=== PATIENT | male | born 2000 | race Caucasian/White ===

== ENCOUNTER 2024-01-26 09:25 | Emergency (ER) | payer SELFPAY ==
[2024-01-26 09:33] VITALS: BP 106/72; PULSE 103; TEMP 37; O2SAT 98; BMI 24.4
--- NOTE | 2024-01-26 09:45 | XR_ITS ---
The [address] [address] Patient Name: VIANEY EARLY MRN: [id number] date: 2000 Sex: M Assigned Patient Location: ER Current Patient Location: ER Accession/Order Number: [id number] Exam Date: 01/26/2024 09:50 Report Date: 01/26/2024 10:09 At the request of: DAYA GLOVER Procedure: XR chest 1V EXAMINATION: XR chest 1V HISTORY: Cough for 3 weeks COMPARISON: No relevant comparison available. FINDINGS: LUNGS: Mild faint patchy opacities within right lung base. VASCULATURE: No increased pulmonary vasculature. PLEURA: No pneumothorax, effusion, or pleural thickening. CARDIAC: No cardiomegaly or cardiac silhouette abnormality. MEDIASTINUM: No visible mass or adenopathy. BONES: No fracture or visible bone lesion. OTHER: Negative. XR/XR chest 1V IMPRESSION: 1. Mild right basilar infiltrates suggestive of pneumonia. Electronically authenticated by: OLIVA PHELPS Date: 01/26/2024 10:09
--- NOTE | 2024-01-26 09:47 | ED_ITS ---
HPI - URI/Sore Throat General Chief Complaint: Upper Respiratory Infection Stated Complaint: COUGH, CHEST PAIN Time Seen by Provider: 01/26/24 09:35 Source: patient History of Present Illness HPI Narrative: 23-year-old male presents to the emergency department for a cough. He has had it for 3 weeks and he will occasionally cough up a small amount of yellow phlegm. He had a fever 1 time more than a week ago. He is not a smoker and does not have asthma. Related Data Previous Rx's ?Medication ?Instructions ?Recorded azithromycin 250 mg tablet See Rx Instructions PO .COMPLEX #6 01/26/24 (Zithromax Z-Jona) tabs benzonatate 100 mg capsule 100 mg PO TID PRN cough #20 caps 01/26/24 Allergies Allergy/AdvReac Type Severity Reaction Status Date / Time No Known Drug Allergies Allergy Verified 01/26/24 09:33 Review of Systems ROS Narrative A ten point review of systems is negative except as noted above. PFSH PFSH Social History Little interest or pleasure in doing things: not at all Feeling down, depressed, or hopeless: not at all Exam Narrative Exam Narrative: Nurses note and vital signs reviewed and patient is not hypoxic. General: The patient appears well and in no apparent distress. Patient is resting comfortably on cart. Skin: Warm, dry, no pallor noted. There is no rash noted. Head: Normocephalic, atraumatic Eye: Normal conjunctiva, no drainage Ears, Nose, Mouth, and Throat: oral mucosa is moist. Nares patent. Cardiovascular: Regular Rate and Rhythm Respiratory: Patient is in no distress, no accessory muscle use, lungs are clear to auscultation, no wheezing, rales or rhonchi Back: non-tender GI: Soft and nontender Musculoskeletal: The patient has no evidence of calf tenderness, no pitting edema, symmetrical pulses noted bilaterally Neurological: A&O, normal speech Psychiatric: Cooperative Constitutional Vital Signs, click to edit/add: Last Vital Signs Temp 98.6 F 01/26/24 09:33 Pulse 103 H 01/26/24 09:33 Resp 16 01/26/24 09:33 BP 106/72 01/26/24 09:33 Pulse Ox 98 01/26/24 09:33 O2 Del Method Room Air 01/26/24 09:33 Course Vital Signs Vital signs: Vital Signs Temperature 98.6 F 11/27/24 09:33 Pulse Rate 103 H 01/26/24 09:33 Respiratory Rate 16 01/26/24 09:33 Blood Pressure 106/72 01/26/24 09:33 Pulse Oximetry 98 01/26/24 09:33 Oxygen Delivery Method Room Air 01/26/24 09:33 Temperature 98.6 F 01/26/24 09:33 Pulse Rate 103 H 01/26/24 09:33 Respiratory Rate 16 01/26/24 09:33 Blood Pressure 106/72 01/26/24 09:33 Pulse Oximetry 98 01/26/24 09:33 Oxygen Delivery Method Room Air 01/26/24 09:33 MDM - URI/Sore Throat MDM Narrative Medical decision making narrative: Chest x-ray indicates right lower lobe pneumonia. He did not want to have the COVID and influenza test performed. He is prescribed Zithromax and Tessalon. Treatment diagnosis and follow-up were discussed with the patient. Differential Diagnosis Differential diagnosis: Likely upper respiratory infection, influenza and other (COVID, pneumonia) Imaging Data Chest x-ray: Radiologist's impression: ITS Impressions Chest X-Ray 01/26/24 09:45 IMPRESSION: 1. Mild right basilar infiltrates suggestive of pneumonia. Electronically authenticated by: OLIVA PHELPS Date: 01/26/2024 10:09 Discharge Plan Discharge Chief Complaint: Upper Respiratory Infection Clinical Impression: Right lower lobe pneumonia Patient Disposition: Home, Self-Care Time of Disposition Decision: 10:22 Condition: Good Mode of Transportation: Private Vehicle Prescriptions / Home Meds: New azithromycin [Zithromax Z-Jona] 250 mg tablet See Rx Instructions .ROUTE .COMPLEX Qty: 6 0RF Rx Instructions: For 250 mg dose pack: take 500 mg today (day 1), then 250 mg for 4 days (days 2-5) benzonatate 100 mg capsule 100 mg PO TID PRN (Reason: cough) Qty: 20 0RF Print Language: Croatian Instructions: Community Acquired Pneumonia (ED) Referrals: Physician,Non-Staff, MD [Primary Care Provider] - 1 week
--- NOTE | 2024-01-26 09:56 | PC.NURSE ---
Patient refuses flu and covid swabs, Dr. Krishna aware.
== END 2024-01-26 10:34 | disposition home or self-care (01) ==
PROVIDERS: Emergency Provider Emergency Medicine
DX: J18.9 Pneumonia, unspecified organism (principal)
CPT/HCPCS: 71045; 87804; 87811; 99284